=== PATIENT | male | born 1960 | race Caucasian/White ===

== ENCOUNTER 2020-02-02 15:50 | Observation (INO) | payer BC, OTHER ==
[2020-02-02] MEDS ORDERED: Sodium Chloride 0.9% 1,000 ML IV ONE (16:06)
[2020-02-02 16:31] LABS: ANION GAP 22.7 mEq/L (7-13)
--- NOTE | 2020-02-02 16:39 | EDM.PDOCBH ---
ED HPI GENERAL MEDICAL PROBLEM - General Chief Complaint: Drug or Alcohol Abuse Stated Complaint: AMBULANCE Time Seen by Provider: 02/02/20 16:20 Source of Information: Reports: Patient History Limitations: Reports: No Limitations - History of Present Illness INITIAL COMMENTS - FREE TEXT/NARRATIVE: This 59 yo male patient was brought to the ED by [facility] due to dizziness, loss of balance and frequent falls. 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 The patient reports he started to take a shot of vodka to get to sleep. The patient reports his alcohol use has increased since he started drinking. The patient reports he has been having frequent falls over the past couple of weeks. The patient reports he was seen in the [facility] on Monday, had lab work and a call was placed to [facility], but no other treatment was started. The patient stated that his had advised him to come to the ED to be admitted due to the alcohol use, abuse and withdrawal history. The patient reports he starts to have withdrawal shakes at about 5-6 hours since his last drink. The patient reports he "just wants to get some medication to sleep, get some rest and i will be fine." Onset: Unknown/Unsure Duration: Constant, Getting Worse Location: Reports: Generalized Quality: Reports: Other Improves with: Reports: None Worsens with: Reports: None Associated Symptoms: Reports: No Other Symptoms - Related Data Allergies Allergy/AdvReac Type Severity Reaction Status Date / Time No Known Allergies Allergy Verified 02/02/20 16:03 Home Meds: Home Meds Rosuvastatin Calcium 10 mg PO BEDTIME 02/02/20 [History] hydrOXYzine HCL [hydrOXYzine] 25 mg PO BEDTIME PRN 02/02/20 [History] metFORMIN HCl [Metformin HCl] 500 mg PO ACBREAKFAST 02/02/20 [History] Past Medical History - Past Health History Medical/Surgical History: Denies Medical/Surgical History HEENT History: Reports: Impaired Vision Cardiovascular History: Reports: High Cholesterol, Hypertension Psychiatric History: Reports: Addiction Endocrine/Metabolic History: Reports: Diabetes, Type II - Infectious Disease History Infectious Disease History: Reports: Chicken Pox, Measles Social & Family History - Tobacco Use Smoking Status *Q: Never Smoker Second Hand Smoke Exposure: No - Caffeine Use Caffeine Use: Reports: None - Alcohol Use Date of Last Drink: 02/02/20 Time of Last Drink: 12:00 - Recreational Drug Use Recreational Drug Use: No - Living Situation & Occupation Living situation: Reports: , Alone Occupation: Employed ED ROS GENERAL - Review of Systems Review Of Systems: Comprehensive ROS is negative, except as noted in HPI. ED EXAM, BEHAVIORAL HEALTH - Physical Exam Exam: See Below Exam Limited By: No Limitations General Appearance: Alert, WD/WN, Moderate Distress Eye Exam: Bilateral Eye: EOMI, Normal Inspection, PERRL Ears: Normal External Exam, Normal Canal, Hearing Grossly Normal, Normal TMs Nose: Normal Inspection, Normal Mucosa, No Blood Throat/Mouth: Normal Inspection, Normal Lips, Normal Teeth, Normal Gums, Normal Oropharynx, Normal Voice, No Airway Compromise Neck: Normal Inspection, Supple, Non-Tender, Full Range of Motion Respiratory/Chest: No Respiratory Distress, Lungs Clear, Normal Breath Sounds, No Accessory Muscle Use, Chest Non-Tender Cardiovascular: Normal Peripheral Pulses, Regular Rate, Rhythm, No Edema, No Gallop, No JVD, No Murmur, No Rub GI/Abdominal: Normal Bowel Sounds, Soft, Non-Tender, No Organomegaly, No Distention, No Abnormal Bruit, No Mass (Male) Exam: Deferred Rectal (Males) Exam: Deferred Back Exam: Normal Inspection, Full Range of Motion, NT Extremities: Arm Pain (bruising to the right shoulder) Neurological: Alert, Normal Mood/Affect, CN II-XII Intact, Normal Cognition, Normal Gait, Normal Reflexes, No Motor/Sensory Deficits, Oriented x 3 Psychiatric: Alert, Normal Cognition, Normal Mood, Oriented, Flat Affect Skin Exam: Warm, Dry, Intact, No rash COURSE, BEHAVIORAL HEALTH COMP - Course Vital Signs: Last Vital Signs Temp 37.1 C 02/02/20 15:50 Pulse 115 H 02/02/20 15:50 Resp 18 02/02/20 15:50 BP 135/85 02/02/20 15:50 Pulse Ox 100 02/02/20 15:50 Orders, Labs, Meds: Active Orders 24 hr Category Date Time Status Admission Diagnosis [ADT] Stat ADT 02/02/20 17:14 Ordered Admission Status [Patient Status] [ADT] Routine ADT 02/02/20 17:14 Ordered EKG Documentation Completion [RC] STAT Care 02/02/20 16:04 Active DRUG SCREEN URINE BIORAD [URCHEM] Stat Lab 02/02/20 16:04 Ordered UA RFX HUSSAIN AND CULT IF INDIC [URIN] Urgent Lab 02/02/20 16:04 Ordered MVI, Adult with Vitamin K [Infuvite Adult] 10 ml Med 02/02/20 17:00 Active Folic Acid 1 mg Thiamine [Vitamin B-1] 100 mg Lactated Ringers [Ringers, Lactated] 1,000 ml IV ONETIME Magnesium Sulfate/D5W [Magnesium Sulfate in D5W 100 Med 02/02/20 16:57 Active Premix] 1 gm Premix Bag 1 bag IV ONETIME Medication Orders Magnesium Sulfate/Dextrose 1 (gm/ Premix) 100 mls @ 100 mls/hr IV ONETIME ONE Stop: 02/02/20 17:56 Multivitamins/Minerals 10 ml/Folic Acid 1 mg/ Thiamine HCl 100 mg/ Lactated Ringer's 1,011.2 mls @ 999 mls/hr IV ONETIME ONE Stop: 02/02/20 18:00 Laboratory Tests 02/02/20 02/02/20 02/02/20 Range/Units 16:00 16:00 16:24 WBC 13.8 H (5.0-10.0) 10^3/uL RBC 2.87 L (4.6-6.2) 10^6/uL Hgb 10.6 L (14.0-18.0) g/dL Hct 31.0 L (40.0-54.0) % MCV 108.0 H (80-100) fL MCH 36.9 H (27.0-34.0) pg MCHC 34.2 (33.0-35.0) g/dL Plt Count 158 (150-450) 10^3/uL Neut % (Auto) 78.2 H (42.2-75.2) % Lymph % (Auto) 10.7 L (20.5-50.1) % [place] % (Auto) 10.8 H (2-8) % Eos % (Auto) 0.1 L (1.0-3.0) % Baso % (Auto) 0.2 (0.0-1.0) % Sodium 138 (136-145) mmol/L Potassium 3.7 (3.5-5.1) mmol/L Chloride 95 L (98-107) mmol/L Carbon Dioxide 24 (21-32) mmol/L Anion Gap 22.7 H (7-13) mEq/L BUN 73 H (7-18) mg/dL Creatinine 1.41 H (0.70-1.30) mg/dL Est Cr Clr Drug Dosing 53.90 mL/min Estimated GFR (MDRD) 51 BUN/Creatinine Ratio 51.8 (No establ ref range) Glucose 268 H (74-99) mg/dL Calcium 9.0 (8.5-10.1) mg/dL Magnesium 1.1 L (1.8-2.4) mg/dL Total Bilirubin 1.7 H (0.2-1.0) mg/dL AST 122 H (15-37) U/L ALT 60 (16-63) U/L Alkaline Phosphatase 117 H (46-116) U/L Ammonia < 10 L (11-32) umol/L Troponin I 0.026 (0.000-0.056) ng/mL Total Protein 7.0 (6.4-8.2) g/dL Albumin 2.8 L (3.4-5.0) g/dL Globulin 4.2 Albumin/Globulin Ratio 0.67 Acetaminophen 0 L (10-30 (Therapeutic)) ug/mL Ethyl Alcohol 26 (0) mg/dL Medications Generic Name Dose Route Start Last Admin Trade Name Freq PRN Reason Stop Dose Admin Magnesium Sulfate/Dextrose 1 100 mls @ 100 mls/hr 02/02/20 16:57 gm/ Premix IV 02/02/20 17:56 ONETIME ONE Multivitamins/Minerals 10 ml/ 1,011.2 mls @ 999 mls/hr 02/02/20 17:00 Folic Acid 1 mg/ Thiamine HCl IV 02/02/20 18:00 100 mg/ Lactated Ringer's ONETIME ONE Discontinued Medications Generic Name Dose Route Start Last Admin Trade Name Freq PRN Reason Stop Dose Admin Sodium Chloride 1,000 mls @ 999 mls/hr 02/02/20 16:06 02/02/20 16:34 Normal Saline IV 02/02/20 17:06 999 mls/hr .BOLUS ONE Administration Departure - Departure Time of Disposition: 17:16 Disposition: Refer to Observation Condition: Fair Clinical Impression: Hypomagnesemia Alcohol withdrawal syndrome Qualifiers: Complication of substance-induced condition: uncomplicated Qualified Code(s): F10.230 - Alcohol dependence with withdrawal, uncomplicated - Discharge Information *PRESCRIPTION DRUG MONITORING PROGRAM REVIEWED*: Not Applicable *COPY OF PRESCRIPTION DRUG MONITORING REPORT IN PATIENT LIZET: Not Applicable Care Plan Goals: Discussed the examination, lab and treatments with Dr. Giron. Dr. Giron accepted the patient for continued evaluation and management as an observation patient at [facility] in [place]. Sepsis Event Note - Evaluation Sepsis Screening Result: No Definite Risk - Focused Exam Vital Signs: Vital Signs Temp Pulse Resp BP Pulse Ox 02/02/20 15:50 37.1 C 115 H 18 135/85 100 Date Exam was Performed: 02/02/20 Time Exam was Performed: 17:16 - My Orders Last 24 Hours: My Active Orders 02/02/20 16:04 EKG Documentation Completion [RC] STAT DRUG SCREEN URINE BIORAD [URCHEM] Stat UA RFX HUSSAIN AND CULT IF INDIC [URIN] Urgent 02/02/20 16:57 Magnesium Sulfate/D5W [Magnesium Sulfate in D5W 100 Premix] 1 gm Premix Bag 1 bag IV ONETIME 02/02/20 17:00 MVI, Adult with Vitamin K [Infuvite Adult] 10 ml Folic Acid 1 mg Thiamine [ Vitamin B-1] 100 mg Lactated Ringers [Ringers, Lactated] 1,000 ml IV ONETIME 02/02/20 17:14 Admission Diagnosis [ADT] Stat Admission Status [Patient Status] [ADT] Routine - Assessment/Plan Last 24 Hours: My Active Orders 02/02/20 16:04 EKG Documentation Completion [RC] STAT DRUG SCREEN URINE BIORAD [URCHEM] Stat UA RFX HUSSAIN AND CULT IF INDIC [URIN] Urgent 02/02/20 16:57 Magnesium Sulfate/D5W [Magnesium Sulfate in D5W 100 Premix] 1 gm Premix Bag 1 bag IV ONETIME 02/02/20 17:00 MVI, Adult with Vitamin K [Infuvite Adult] 10 ml Folic Acid 1 mg Thiamine [ Vitamin B-1] 100 mg Lactated Ringers [Ringers, Lactated] 1,000 ml IV ONETIME 02/02/20 17:14 Admission Diagnosis [ADT] Stat Admission Status [Patient Status] [ADT] Routine
[2020-02-02] MEDS ORDERED: MVI, Adult with Vitamin K 10 ML, Folic Acid 1 MG, Thiamine 100 MG in Lactated Ringers 1... IV ONE ×4 (17:00)
[2020-02-02] MEDS ORDERED: Ondansetron 4 MG/2 ML SDV IVPUSH PRN (18:03)
[2020-02-02] MEDS ORDERED: Promethazine 25 MG/ML SDV IM PRN (18:03)
[2020-02-02] MEDS ORDERED: Ondansetron 4 MG Tab.DIS PO PRN (18:03)
[2020-02-02] MEDS ORDERED: Acetaminophen 325 MG Tab PO PRN (18:03)
[2020-02-02] MEDS ORDERED: Promethazine 25 MG Tab PO PRN (18:03)
[2020-02-02] MEDS ORDERED: LORazepam 2 MG/ML SDV IVPUSH PRN (18:07)
[2020-02-02] MEDS ORDERED: Sodium Chloride 0.9% 1,000 ML IV SCH (18:15)
[2020-02-02] MEDS ORDERED: Pantoprazole 40 MG in Sodium Chloride 0.9% 100 ML IV SCH (18:45)
--- NOTE | 2020-02-02 18:45 | PCM.HP ---
H&P History of Present Illness - General Date of Service: 02/02/20 Admit Problem/Dx: Admission Diagnosis/Problem Admission Diagnosis/Problem Hypomagnesemia Source of Information: Patient, Old Records, Provider - History of Present Illness Initial Comments - Free Text/Narative: Patient is a 39-year-old male with medical history significant for ulcerative colitis, iron deficiency anemia, goiter, recurrent cellulitis, sinusitis, and morbid obesity who was sent to the ED from clinic for concern for DVT of the left lower extremity. Patient reports that he scratched the anterior left lower leg about a week ago. States that he does not recall how he sustained the injury to the lower leg. Reports that since last Monday, he started having redness of the lower extremity that slowly progressed. States that he was seen in clinic and was started on Bactrim. Reports that redness has persisted and continued to progress. Denies any discharge from the lower extremity. Reports left lower extremity is swollen compared to baseline. Reports that he has been having shortness of breath and nonproductive cough since August. States that he has been told that this is likely related to his anemia and has received 2 iron transfusions for this. Reports chronic diarrhea with intermittent episodes of hematochezia. Denies chest pain, fevers, chills, nausea, vomiting, urea, hematuria, or any other symptoms. Reports that he has not had any recent sick contacts. States that he has been diligent in maintaining social isolation. The clinic today, patient's WBC count was 8.28 with hemoglobin of 9.7 and platelet count of 246. LFTs were fairly normal except for low albumin. CRP was 2.7, decreased from 3.4 on 01/16/2020. In the ED, ultrasound of the lower extremity was negative for DVT. Patient is being admitted for IV antibiotics due to failed outpatient treatment with oral antibiotics. Onset of Symptoms: Reports: Today - Related Data Allergies/Adverse Reactions: Allergies Allergy/AdvReac Type Severity Reaction Status Date / Time No Known Allergies Allergy Verified 02/02/20 18:07 Home Medications: Home Meds Rosuvastatin Calcium 10 mg PO Q48H 02/02/20 [History] hydrOXYzine HCL [hydrOXYzine] 25 mg PO BEDTIME PRN 02/02/20 [History] metFORMIN HCl [Metformin HCl] 500 mg PO ACBREAKFAST 02/02/20 [History] Past Medical History - Past Health History Medical/Surgical History: Denies Medical/Surgical History HEENT History: Reports: Impaired Vision Cardiovascular History: Reports: High Cholesterol, Hypertension Psychiatric History: Reports: Addiction Endocrine/Metabolic History: Reports: Diabetes, Type II - Infectious Disease History Infectious Disease History: Reports: Chicken Pox, Measles Social & Family History - Tobacco Use Smoking Status *Q: Never Smoker Second Hand Smoke Exposure: No - Caffeine Use Caffeine Use: Reports: None - Alcohol Use Date of Last Drink: 02/02/20 Time of Last Drink: 12:00 - Recreational Drug Use Recreational Drug Use: No - Living Situation & Occupation Living situation: Reports: , Alone Occupation: Employed H&P Review of Systems - Review of Systems: Review Of Systems: Comprehensive ROS is negative, except as noted in HPI. Exam - Exam Exam: See Below - Vital Signs Vital Signs: Last Vital Signs Temp 98.8 F 02/02/20 15:50 Pulse 115 H 02/02/20 15:50 Resp 18 02/02/20 15:50 BP 135/85 02/02/20 15:50 Pulse Ox 100 02/02/20 15:50 Weight: 203 lb 4.8 oz - Exam General: Alert, Oriented, Cooperative, Moderate Distress HEENT: Conjunctiva Clear, EOMI, Hearing Intact, Mucosa Moist & [place] Neck: Supple, Trachea Midline Lungs: Clear to Auscultation, Normal Respiratory Effort Cardiovascular: Regular Rate, Regular Rhythm, Tachycardia GI/Abdominal Exam: Normal Bowel Sounds, Soft, Non-Tender, No Distention Extremities: Normal Inspection, Non-Tender, No Pedal Edema Skin: Warm, Dry, Intact Neuro Extensive - Mental Status: Alert, Oriented x3, Normal Mood/Affect, Normal Cognition, Memory Intact Psychiatric: Alert, Normal Affect, Normal Mood - Patient Data Lab Results Last 24 hrs: Laboratory Results - last 24 hr 02/02/20 02/02/20 02/02/20 Range/Units 16:00 16:00 16:24 WBC 13.8 H (5.0-10.0) 10^3/uL RBC 2.87 L (4.6-6.2) 10^6/uL Hgb 10.6 L (14.0-18.0) g/dL Hct 31.0 L (40.0-54.0) % MCV 108.0 H (80-100) fL MCH 36.9 H (27.0-34.0) pg MCHC 34.2 (33.0-35.0) g/dL Plt Count 158 (150-450) 10^3/uL Neut % (Auto) 78.2 H (42.2-75.2) % Lymph % (Auto) 10.7 L (20.5-50.1) % [place] % (Auto) 10.8 H (2-8) % Eos % (Auto) 0.1 L (1.0-3.0) % Baso % (Auto) 0.2 (0.0-1.0) % Sodium 138 (136-145) mmol/L Potassium 3.7 (3.5-5.1) mmol/L Chloride 95 L (98-107) mmol/L Carbon Dioxide 24 (21-32) mmol/L Anion Gap 22.7 H (7-13) mEq/L BUN 73 H (7-18) mg/dL Creatinine 1.41 H (0.70-1.30) mg/dL Est Cr Clr Drug Dosing 53.90 mL/min Estimated GFR (MDRD) 51 BUN/Creatinine Ratio 51.8 (No establ ref range) Glucose 268 H (74-99) mg/dL Calcium 9.0 (8.5-10.1) mg/dL Phosphorus (2.6-4.7) mg/dL Magnesium 1.1 L (1.8-2.4) mg/dL Total Bilirubin 1.7 H (0.2-1.0) mg/dL AST 122 H (15-37) U/L ALT 60 (16-63) U/L Alkaline Phosphatase 117 H (46-116) U/L Ammonia < 10 L (11-32) umol/L Troponin I 0.026 (0.000-0.056) ng/mL Total Protein 7.0 (6.4-8.2) g/dL Albumin 2.8 L (3.4-5.0) g/dL Globulin 4.2 Albumin/Globulin Ratio 0.67 Urine Color (YELLOW) Urine Appearance (CLEAR) Urine pH (5.0-9.0) Ur Specific [place] (1.005-1.030) Urine Protein (NEGATIVE) Urine Glucose (UA) (NEGATIVE) Urine Ketones (NEGATIVE) Urine Occult Blood (NEGATIVE) Urine Nitrite (NEGATIVE) Urine Bilirubin (NEGATIVE) Urine Urobilinogen (0.2-1.0) mg/dL Ur Leukocyte Esterase (NEGATIVE) Urine Opiates Screen (NEGATIVE) Ur Oxycodone Screen (NEGATIVE) Urine Methadone Screen (NEGATIVE) Acetaminophen 0 L (10-30 (Therapeutic)) ug/mL Ur Barbiturates Screen (NEGATIVE) U Tricyclic Antidepress (NEGATIVE) Ur Phencyclidine Scrn (NEGATIVE) Ur Amphetamine Screen (NEGATIVE) U Methamphetamines Scrn (NEGATIVE) Urine MDMA Screen (NEGATIVE) U Benzodiazepines Scrn (NEGATIVE) Urine Cocaine Screen (NEGATIVE) U Marijuana (THC) Screen (NEGATIVE) Ethyl Alcohol 26 (0) mg/dL 02/02/20 02/02/20 02/02/20 Range/Units 16:24 16:45 17:45 WBC (5.0-10.0) 10^3/uL RBC (4.6-6.2) 10^6/uL Hgb (14.0-18.0) g/dL Hct (40.0-54.0) % MCV (80-100) fL MCH (27.0-34.0) pg MCHC (33.0-35.0) g/dL Plt Count (150-450) 10^3/uL Neut % (Auto) (42.2-75.2) % Lymph % (Auto) (20.5-50.1) % [place] % (Auto) (2-8) % Eos % (Auto) (1.0-3.0) % Baso % (Auto) (0.0-1.0) % Sodium (136-145) mmol/L Potassium (3.5-5.1) mmol/L Chloride (98-107) mmol/L Carbon Dioxide (21-32) mmol/L Anion Gap (7-13) mEq/L BUN (7-18) mg/dL Creatinine (0.70-1.30) mg/dL Est Cr Clr Drug Dosing mL/min Estimated GFR (MDRD) BUN/Creatinine Ratio (No establ ref range) Glucose (74-99) mg/dL Calcium (8.5-10.1) mg/dL Phosphorus 1.2 L (2.6-4.7) mg/dL Magnesium (1.8-2.4) mg/dL Total Bilirubin (0.2-1.0) mg/dL AST (15-37) U/L ALT (16-63) U/L Alkaline Phosphatase (46-116) U/L Ammonia (11-32) umol/L Troponin I (0.000-0.056) ng/mL Total Protein (6.4-8.2) g/dL Albumin (3.4-5.0) g/dL Globulin Albumin/Globulin Ratio Urine Color Dark yellow (YELLOW) Urine Appearance Slightly cloudy (CLEAR) Urine pH 5.5 (5.0-9.0) Ur Specific [place] 1.015 (1.005-1.030) Urine Protein Negative (NEGATIVE) Urine Glucose (UA) Negative (NEGATIVE) Urine Ketones 15 H (NEGATIVE) Urine Occult Blood Negative (NEGATIVE) Urine Nitrite Negative (NEGATIVE) Urine Bilirubin Negative (NEGATIVE) Urine Urobilinogen 2.0 H (0.2-1.0) mg/dL Ur Leukocyte Esterase Negative (NEGATIVE) Urine Opiates Screen Negative (NEGATIVE) Ur Oxycodone Screen Negative (NEGATIVE) Urine Methadone Screen Negative (NEGATIVE) Acetaminophen (10-30 (Therapeutic)) ug/mL Ur Barbiturates Screen Negative (NEGATIVE) U Tricyclic Antidepress Negative (NEGATIVE) Ur Phencyclidine Scrn Negative (NEGATIVE) Ur Amphetamine Screen Negative (NEGATIVE) U Methamphetamines Scrn Negative (NEGATIVE) Urine MDMA Screen Negative (NEGATIVE) U Benzodiazepines Scrn Negative (NEGATIVE) Urine Cocaine Screen Negative (NEGATIVE) U Marijuana (THC) Screen Negative (NEGATIVE) Ethyl Alcohol (0) mg/dL Result Diagrams: 02/02/20 16:00 02/02/20 16:00 - Problem List (1) Alcohol withdrawal syndrome SNOMED Code(s): 314435461 ICD Code: F10.239 - ALCOHOL DEPENDENCE WITH WITHDRAWAL, UNSPECIFIED Status : Acute Current Visit: No Qualifiers: Complication of substance-induced condition: uncomplicated Qualified Code(s ): F10.230 - Alcohol dependence with withdrawal, uncomplicated (2) Hypomagnesemia SNOMED Code(s): 879164220 ICD Code: E83.42 - HYPOMAGNESEMIA Status: Acute Current Visit: No (3) Alcoholic liver damage SNOMED Code(s): 51240299 ICD Code: K70.9 - ALCOHOLIC LIVER DISEASE, UNSPECIFIED Status: Acute Current Visit: Yes Problem List Initiated/Reviewed/Updated: Yes Orders Last 24hrs: Active Orders 24 hr Category Date Time Status Admission Diagnosis [ADT] Stat ADT 02/02/20 17:14 Ordered Admission Status [Patient Status] [ADT] Routine ADT 02/02/20 17:14 Active EKG Documentation Completion [RC] STAT Care 02/02/20 16:04 Active Intake and Output [RC] QSHIFT Care 02/02/20 18:04 Ordered Oxygen Therapy [RC] PRN Care 02/02/20 18:03 Ordered Up With Assistance [RC] ASDIRECTED Care 02/02/20 18:03 Ordered VTE/DVT Education [RC] PER UNIT ROUTINE Care 02/02/20 18:03 Ordered Vital Signs [RC] Q4H Care 02/02/20 18:03 Ordered OT Evaluation and Treatment [CONS] Routine Cons 02/02/20 18:03 Ordered PT Evaluation and Treatment [CONS] Routine Cons 02/02/20 18:03 Ordered Regular Diet [DIET] Diet 02/02/20 Dinner Ordered BASIC METABOLIC PANEL,BMP [CHEM] AM Lab 02/03/20 05:11 Ordered CBC W/O DIFF,HEMOGRAM [HEME] AM Lab 02/03/20 05:11 Ordered HEPATIC FUNCTION PANEL,HFP [CHEM] AM Lab 02/03/20 05:11 Ordered MAGNESIUM [CHEM] AM Lab 02/03/20 05:11 Ordered PHOSPHORUS [CHEM] AM Lab 02/03/20 05:11 Ordered Acetaminophen [Tylenol] Med 02/02/20 18:03 Ordered 650 mg PO Q6H PRN Docusate Sodium/Sennosides [Senna Plus] Med 02/02/20 18:03 Ordered 1 tab PO BEDTIME PRN Enoxaparin [Lovenox] Med 02/03/20 09:00 Ordered 40 mg SUBCUT DAILY LORazepam [Ativan] Med 02/02/20 18:07 Ordered See Protocol IVPUSH Q2H PRN Multivitamins/Minerals [Vitamins and Minerals] Med 02/02/20 21:00 Ordered 1 tab PO BEDTIME Ondansetron [Zofran ODT] Med 02/02/20 18:03 Ordered 4 mg PO Q6H PRN Ondansetron [Zofran] Med 02/02/20 18:03 Ordered 4 mg IVPUSH Q6H PRN Promethazine [Phenergan] Med 02/02/20 18:03 Ordered 25 mg PO Q6H PRN Promethazine [Phenergan] Med 02/02/20 18:03 Ordered 6.25 mg IM Q6H PRN Sodium Chloride 0.9% [Normal Saline] 1,000 ml Med 02/02/20 18:15 Ordered IV ASDIRECTED Thiamine [Vitamin B-1] Med 02/02/20 21:00 Ordered 100 mg PO BEDTIME Resuscitation Status Routine Resus Stat 02/02/20 18:03 Ordered Medication Orders Acetaminophen (Tylenol) 650 mg PO Q6H PRN PRN Reason: Pain Enoxaparin Sodium (Lovenox) 40 mg SUBCUT DAILY SUSIE Sodium Chloride (Normal Saline) 1,000 mls @ 100 mls/hr IV ASDIRECTED SUSIE Lorazepam (Ativan) 0 mg IVPUSH Q2H PRN; Protocol PRN Reason: Withdrawal Symptoms Multivitamins/Minerals (Vitamins And Minerals) 1 tab PO BEDTIME SUSIE Ondansetron HCl (Zofran Odt) 4 mg PO Q6H PRN PRN Reason: nausea, able to take PO Ondansetron HCl (Zofran) 4 mg IVPUSH Q6H PRN PRN Reason: Nausea/Vomiting Promethazine HCl (Phenergan) 25 mg PO Q6H PRN PRN Reason: nausea, able to take PO Promethazine HCl (Phenergan) 6.25 mg IM Q6H PRN PRN Reason: Nausea/Vomiting Senna/Docusate Sodium (Senna Plus) 1 tab PO BEDTIME PRN PRN Reason: Constipation Thiamine HCl (Vitamin B-1) 100 mg PO BEDTIME [facility] Assessment/Plan Comment:: #Acute upper GI bleed: Patient reports coffee-ground emesis with melenic stools. Has disproportionate BUN elevation compared to creatinine elevation. Presented with BUN of 73, was 32 on 01/31/2020. Also presented with creatinine of 0.4, was 1.2 on 01/31/2020. His hemoglobin was 13.7 on 01/31/2020, hemoglobin on presentation is 10.6. Give bolus dose of IV PPI Discussed with patient, ED provider, and nursing supervisor labor gang and decision was made to transfer patient to [facility] for higher level of care and GI consultation. N.p.o. #Alcohol withdrawal syndrome: [place] protocol with Ativan Monitor and replace electrolytes #Hypomagnesemia: Received aggressive in the ED Monitor and replace electrolytes
--- NOTE | 2020-02-02 18:47 | PCM.DCSUM1 ---
Discharge Summary - Hospital Course Free Text/Narrative:: Patient is a 59-year-old male with medical history significant for diabetes, anxiety, depression, obesity and prior tobacco use who presented to the ED with complaints of recurrent falls, lightheadedness, and weakness. Patient reports that for the past 1 week, he has been feeling aggressively weaker. Reports that he has had multiple falls. Denies any head trauma or loss of consciousness. Reports that he has been having coffee-ground emesis and melenic stools. Reports that he has had any bright red blood in his emesis or stools. Reports that he has had about 3-4 episodes a day there are black and tarry. Reports that he has to run to the bathroom anytime he has to have a bowel movement. Denies any prior episodes. Reports that he has been drinking about 6 shots of vodka daily. States that he drinks about 18 shots of vodka when he is not working. Reports that he started drinking about 2 and half years ago when he started working from 11 PM to 7 AM and and had difficulty sleeping when he initially shift. He denies chest pain, shortness of, fevers, chills, dysuria, hematuria, edema, or any other symptoms. The ED, patient's hemoglobin was 10.6. Hemoglobin was 13.7 on 01/31/2020. Patient's BUN was 32 and creatinine was 1.2 on 2019. On presentation today, BUN was 73 and creatinine was 1.41. Due to concern for GI bleed, patient's case was discussed with ED provider and nursing labor crew supervisor and decision was made to transfer patient from medical service as he had been already discharged from the ED. Patient is being discharged to [facility] for higher level of care. #Acute upper GI bleed: Patient reports coffee-ground emesis with melenic stools. Has disproportionate BUN elevation compared to creatinine elevation. Presented with BUN of 73, was 32 on 01/31/2020. Also presented with creatinine of 0.4, was 1.2 on 01/31/2020. His hemoglobin was 13.7 on 01/31/2020, hemoglobin on presentation is 10.6. Give bolus dose of IV PPI Discussed with patient, ED provider, and nursing labor crew supervisor and decision was made to transfer patient to [facility] for higher level of care and GI consultation. N.p.o. #Alcohol withdrawal syndrome: CIWA protocol with Ativan Monitor and replace electrolytes #Hypomagnesemia: Received aggressive in the ED Monitor and replace electrolytes HPI Initial Comments: Patient is a 59-year-old male with medical history significant for diabetes, anxiety, depression, obesity and prior tobacco use who presented to the ED with complaints of recurrent falls, lightheadedness, and weakness. Patient reports that for the past 1 week, he has been feeling aggressively weaker. Reports that he has had multiple falls. Denies any head trauma or loss of consciousness. Reports that he has been having coffee-ground emesis and melenic stools. Reports that he has had any bright red blood in his emesis or stools. Reports that he has had about 3-4 episodes a day there are black and tarry. Reports that he has to run to the bathroom anytime he has to have a bowel movement. Denies any prior episodes. Reports that he has been drinking about 6 shots of vodka daily. States that he drinks about 18 shots of vodka when he is not working. Reports that he started drinking about 2 and half years ago when he started working from 11 PM to 7 AM and and had difficulty sleeping when he initially shift. He denies chest pain, shortness of, fevers, chills, dysuria, hematuria, edema, or any other symptoms. The ED, patient's hemoglobin was 10.6. Hemoglobin was 13.7 on 01/31/2020. Patient's BUN was 32 and creatinine was 1.2 on 2019. On presentation today, BUN was 73 and creatinine was 1.41. Due to concern for GI bleed, patient's case was discussed with ED provider and nursing labor crew supervisor and decision was made to transfer patient from medical service as he had been already discharged from the ED. Patient is being discharged to [facility] for higher level of care. Diagnosis: Stroke: No - Discharge Data Discharge Date: 02/02/20 Discharge Disposition: Home, Self-Care 01 Condition: Good - Referral to Home Health Primary Care Physician: PCP None - Discharge Diagnosis/Problem(s) (1) Alcohol withdrawal syndrome SNOMED Code(s): 500399705 ICD Code: F10.239 - ALCOHOL DEPENDENCE WITH WITHDRAWAL, UNSPECIFIED Status : Acute Current Visit: No Qualifiers: Complication of substance-induced condition: uncomplicated Qualified Code(s ): F10.230 - Alcohol dependence with withdrawal, uncomplicated (2) Hypomagnesemia SNOMED Code(s): 095948453 ICD Code: E83.42 - HYPOMAGNESEMIA Status: Acute Current Visit: No (3) Alcoholic liver damage SNOMED Code(s): 62011591 ICD Code: K70.9 - ALCOHOLIC LIVER DISEASE, UNSPECIFIED Status: Acute Current Visit: Yes - Patient Summary/Data Consults: Consultations 02/02/20 18:03 OT Evaluation and Treatment [CONS] Routine PT Evaluation and Treatment [CONS] Routine - Discharge Plan *PRESCRIPTION DRUG MONITORING PROGRAM REVIEWED*: Not Applicable *COPY OF PRESCRIPTION DRUG MONITORING REPORT IN PATIENT LIZET: Not Applicable Home Medications: Home Meds Rosuvastatin Calcium 10 mg PO Q48H 02/02/20 [History] hydrOXYzine HCL [hydrOXYzine] 25 mg PO BEDTIME PRN 02/02/20 [History] metFORMIN HCl [Metformin HCl] 500 mg PO ACBREAKFAST 02/02/20 [History] Referrals: PCP,None [Primary Care Provider] - - Discharge Summary/Plan Comment DC Time >30 min.: Yes - General Info Date of Service: 02/02/20 Admission Dx/Problem (Free Text: Admission Diagnosis/Problem Admission Diagnosis/Problem Hypomagnesemia Subjective Update: Patient is being discharged to [facility] for higher level of care after he endorsed symptoms concerning for GI bleed and his labs and vital signs supported the diagnosis. - Review of Systems General: Reports: Weakness HEENT: Reports: No Symptoms Pulmonary: Reports: No Symptoms Cardiovascular: Reports: No Symptoms Gastrointestinal: Reports: Diarrhea, Melena, Nausea, Vomiting (Coffee grounds) Genitourinary: Reports: No Symptoms Musculoskeletal: Reports: No Symptoms Skin: Reports: No Symptoms Neurological: Reports: No Symptoms, Weakness Psychiatric: Reports: No Symptoms - Patient Data Vitals - Most Recent: Last Vital Signs Temp 98.8 F 02/02/20 15:50 Pulse 115 H 02/02/20 15:50 Resp 18 02/02/20 15:50 BP 135/85 02/02/20 15:50 Pulse Ox 100 02/02/20 15:50 Weight - Most Recent: 203 lb 4.8 oz Lab Results - Last 24 hrs: Laboratory Results - last 24 hr 02/02/20 02/02/20 02/02/20 Range/Units 16:00 16:00 16:24 WBC 13.8 H (5.0-10.0) 10^3/uL RBC 2.87 L (4.6-6.2) 10^6/uL Hgb 10.6 L (14.0-18.0) g/dL Hct 31.0 L (40.0-54.0) % MCV 108.0 H (80-100) fL MCH 36.9 H (27.0-34.0) pg MCHC 34.2 (33.0-35.0) g/dL Plt Count 158 (150-450) 10^3/uL Neut % (Auto) 78.2 H (42.2-75.2) % Lymph % (Auto) 10.7 L (20.5-50.1) % [place] % (Auto) 10.8 H (2-8) % Eos % (Auto) 0.1 L (1.0-3.0) % Baso % (Auto) 0.2 (0.0-1.0) % Sodium 138 (136-145) mmol/L Potassium 3.7 (3.5-5.1) mmol/L Chloride 95 L (98-107) mmol/L Carbon Dioxide 24 (21-32) mmol/L Anion Gap 22.7 H (7-13) mEq/L BUN 73 H (7-18) mg/dL Creatinine 1.41 H (0.70-1.30) mg/dL Est Cr Clr Drug Dosing 53.90 mL/min Estimated GFR (MDRD) 51 BUN/Creatinine Ratio 51.8 (No establ ref range) Glucose 268 H (74-99) mg/dL Calcium 9.0 (8.5-10.1) mg/dL Phosphorus (2.6-4.7) mg/dL Magnesium 1.1 L (1.8-2.4) mg/dL Total Bilirubin 1.7 H (0.2-1.0) mg/dL AST 122 H (15-37) U/L ALT 60 (16-63) U/L Alkaline Phosphatase 117 H (46-116) U/L Ammonia < 10 L (11-32) umol/L Troponin I 0.026 (0.000-0.056) ng/mL Total Protein 7.0 (6.4-8.2) g/dL Albumin 2.8 L (3.4-5.0) g/dL Globulin 4.2 Albumin/Globulin Ratio 0.67 Urine Color (YELLOW) Urine Appearance (CLEAR) Urine pH (5.0-9.0) Ur Specific [place] (1.005-1.030) Urine Protein (NEGATIVE) Urine Glucose (UA) (NEGATIVE) Urine Ketones (NEGATIVE) Urine Occult Blood (NEGATIVE) Urine Nitrite (NEGATIVE) Urine Bilirubin (NEGATIVE) Urine Urobilinogen (0.2-1.0) mg/dL Ur Leukocyte Esterase (NEGATIVE) Urine Opiates Screen (NEGATIVE) Ur Oxycodone Screen (NEGATIVE) Urine Methadone Screen (NEGATIVE) Acetaminophen 0 L (10-30 (Therapeutic)) ug/mL Ur Barbiturates Screen (NEGATIVE) U Tricyclic Antidepress (NEGATIVE) Ur Phencyclidine Scrn (NEGATIVE) Ur Amphetamine Screen (NEGATIVE) U Methamphetamines Scrn (NEGATIVE) Urine MDMA Screen (NEGATIVE) U Benzodiazepines Scrn (NEGATIVE) Urine Cocaine Screen (NEGATIVE) U Marijuana (THC) Screen (NEGATIVE) Ethyl Alcohol 26 (0) mg/dL 02/02/20 02/02/20 02/02/20 Range/Units 16:24 16:45 17:45 WBC (5.0-10.0) 10^3/uL RBC (4.6-6.2) 10^6/uL Hgb (14.0-18.0) g/dL Hct (40.0-54.0) % MCV (80-100) fL MCH (27.0-34.0) pg MCHC (33.0-35.0) g/dL Plt Count (150-450) 10^3/uL Neut % (Auto) (42.2-75.2) % Lymph % (Auto) (20.5-50.1) % [place] % (Auto) (2-8) % Eos % (Auto) (1.0-3.0) % Baso % (Auto) (0.0-1.0) % Sodium (136-145) mmol/L Potassium (3.5-5.1) mmol/L Chloride (98-107) mmol/L Carbon Dioxide (21-32) mmol/L Anion Gap (7-13) mEq/L BUN (7-18) mg/dL Creatinine (0.70-1.30) mg/dL Est Cr Clr Drug Dosing mL/min Estimated GFR (MDRD) BUN/Creatinine Ratio (No establ ref range) Glucose (74-99) mg/dL Calcium (8.5-10.1) mg/dL Phosphorus 1.2 L (2.6-4.7) mg/dL Magnesium (1.8-2.4) mg/dL Total Bilirubin (0.2-1.0) mg/dL AST (15-37) U/L ALT (16-63) U/L Alkaline Phosphatase (46-116) U/L Ammonia (11-32) umol/L Troponin I (0.000-0.056) ng/mL Total Protein (6.4-8.2) g/dL Albumin (3.4-5.0) g/dL Globulin Albumin/Globulin Ratio Urine Color Dark yellow (YELLOW) Urine Appearance Slightly cloudy (CLEAR) Urine pH 5.5 (5.0-9.0) Ur Specific [place] 1.015 (1.005-1.030) Urine Protein Negative (NEGATIVE) Urine Glucose (UA) Negative (NEGATIVE) Urine Ketones 15 H (NEGATIVE) Urine Occult Blood Negative (NEGATIVE) Urine Nitrite Negative (NEGATIVE) Urine Bilirubin Negative (NEGATIVE) Urine Urobilinogen 2.0 H (0.2-1.0) mg/dL Ur Leukocyte Esterase Negative (NEGATIVE) Urine Opiates Screen Negative (NEGATIVE) Ur Oxycodone Screen Negative (NEGATIVE) Urine Methadone Screen Negative (NEGATIVE) Acetaminophen (10-30 (Therapeutic)) ug/mL Ur Barbiturates Screen Negative (NEGATIVE) U Tricyclic Antidepress Negative (NEGATIVE) Ur Phencyclidine Scrn Negative (NEGATIVE) Ur Amphetamine Screen Negative (NEGATIVE) U Methamphetamines Scrn Negative (NEGATIVE) Urine MDMA Screen Negative (NEGATIVE) U Benzodiazepines Scrn Negative (NEGATIVE) Urine Cocaine Screen Negative (NEGATIVE) U Marijuana (THC) Screen Negative (NEGATIVE) Ethyl Alcohol (0) mg/dL Med Orders - Current: Current Medications Acetaminophen (Tylenol) 650 mg PO Q6H PRN PRN Reason: Pain Enoxaparin Sodium (Lovenox) 40 mg SUBCUT DAILY SUSIE Sodium Chloride (Normal Saline) 1,000 mls @ 100 mls/hr IV ASDIRECTED SUSIE Pantoprazole Sodium 40 mg/ (Sodium Chloride) 100 mls @ 20 mls/hr IV .CONTINUOS SUSIE Lorazepam (Ativan) 0 mg IVPUSH Q2H PRN; Protocol PRN Reason: Withdrawal Symptoms Multivitamins/Minerals (Vitamins And Minerals) 1 tab PO BEDTIME SUSIE Ondansetron HCl (Zofran Odt) 4 mg PO Q6H PRN PRN Reason: nausea, able to take PO Ondansetron HCl (Zofran) 4 mg IVPUSH Q6H PRN PRN Reason: Nausea/Vomiting Promethazine HCl (Phenergan) 25 mg PO Q6H PRN PRN Reason: nausea, able to take PO Promethazine HCl (Phenergan) 6.25 mg IM Q6H PRN PRN Reason: Nausea/Vomiting Senna/Docusate Sodium (Senna Plus) 1 tab PO BEDTIME PRN PRN Reason: Constipation Thiamine HCl (Vitamin B-1) 100 mg PO BEDTIME SUSIE Discontinued Medications Sodium Chloride (Normal Saline) 1,000 mls @ 999 mls/hr IV .BOLUS ONE Stop: 02/02/20 17:06 Last Admin: 02/02/20 16:34 Dose: 999 mls/hr Magnesium Sulfate/Dextrose 1 (gm/ Premix) 100 mls @ 100 mls/hr IV ONETIME ONE Stop: 02/02/20 17:56 Last Admin: 02/02/20 17:21 Dose: 100 mls/hr Multivitamins/Minerals 10 ml/Folic Acid 1 mg/ Thiamine HCl 100 mg/ Lactated Ringer's 1,011.2 mls @ 999 mls/hr IV ONETIME ONE Stop: 02/02/20 18:00 - Exam General: Reports: Alert, Oriented HEENT: Reports: Pupils Equal, Pupils Reactive, Mucous Membr. Moist/[place] Neck: Reports: Supple Lungs: Reports: Clear to Auscultation, Normal Respiratory Effort Cardiovascular: Reports: Regular Rate, Regular Rhythm GI/Abdominal Exam: Normal Bowel Sounds, Soft, Non-Tender, No Distention Extremities: Normal Inspection, Normal Range of Motion, No Pedal Edema Skin: Reports: Warm, Dry, Intact Neurological: Reports: No New Focal Deficit Psy/Mental Status: Reports: Alert, Normal Affect, Normal Mood
[2020-02-02] MEDS ORDERED: Thiamine 100 MG Tab PO SCH (21:00)
[2020-02-02] MEDS ORDERED: Multivitamins, Therapeutic with Minerals Tab PO SCH (21:00)
[2020-02-03] MEDS ORDERED: Enoxaparin 40 MG/0.4 ML Syringe SUBCUT SCH (09:00)
== END 2020-02-02 19:07 | disposition home or self-care (01) ==
LOC: DL.ED 15:50 → DL.MS 17:14 → DL.ED 17:31
PROVIDERS: ADMIT Internal Medicine; ATTEND Internal Medicine
DX: F10.239 Alcohol dependence with withdrawal, unspecified (principal); F10.288 Alcohol dependence with other alcohol-induced disorder; K92.2 Gastrointestinal hemorrhage, unspecified; K70.9 Alcoholic liver disease, unspecified; E83.42 Hypomagnesemia; E78.00 Pure hypercholesterolemia, unspecified; E66.01 Morbid (severe) obesity due to excess calories; E11.9 Type 2 diabetes mellitus without complications; F41.9 Anxiety disorder, unspecified; F32.9 Major depressive disorder, single episode, unspecified; I10 Essential (primary) hypertension; Z79.84 Long term (current) use of oral hypoglycemic drugs; Z79.899 Other long term (current) drug therapy; Y90.0 Blood alcohol level of less than 20 mg/100 ml; Z68.30 Body mass index [BMI] 30.0-30.9, adult
CPT/HCPCS: 36415; 80053; 80305; 80307; 81003; 82140; 83735; 84100; 84484; 85025; 93005; 96361; 96374; 99285; J2060; J3475; J7030; 96365; 96375; G0378